=== PATIENT | female | born 1990 | race Two or more races ===

== ENCOUNTER 2019-12-13 23:06 | Emergency (ER) | payer MEDICAID ==
[~2019-12-13] VITALS: Ht 144.8 cm; Wt 49.9 kg
[2019-12-13 23:41] LABS: Basophils # (auto) 0.1 uL; Basophils % (auto) 0.7 % (0.0-2.0); Eosinophils # (auto) 0.1 uL; Eosinophils % (auto) 0.5 % (0.0-7.0); Hematocrit 37.6 % (36.0-46.0); Hemoglobin 12.9 g/dL (12.2-16.2); Lymphocytes # (auto) 2.8 uL; Mean Corpuscular Hemoglobin 32.5 pg (28.0-32.0); Mean Corpuscular Hgb Conc. 34.2 g/dL (32.0-36.0); Mean Corpuscular Volume 94.8 fL (80.0-100.0); Monocytes # (auto) 0.7 uL; Neutrophils # (auto) 7.9 uL; Neutrophils % (auto) 68.8 % (37.0-80.0); Platelet Count (auto) 293 10^3/uL (140-450); Red Blood Cells 3.97 10^6/uL (4.0-5.20); Red Cell Distribution Width 12.5 % (11.8-14.3); White Blood Cell 11.5 10^3/uL (4.4-10.8)
[2019-12-13 23:45] LABS: Urine Bacteria NONE SEEN /hpf (None Seen); Urine Blood 2+ /uL (Negative); Urine Mucus FEW (None Seen); Urine Specific Gravity 1.026 (1.001-1.035); Urine WBC 58 /hpf (0 - 5)
[2019-12-13 23:57] LABS: Albumin 3.4 g/dL (3.4-5.0); Calcium 9.3 mg/dL (8.5-10.1); Potassium 3.9 mmol/L (3.5-5.1)
[2019-12-13 23:59] LABS: Bilirubin, Total 0.3 mg/dL (0.2-1.0)
[2019-12-14 02:00] VITALS: BP 109/65
[2019-12-14] MEDS ORDERED: ACETAMINOPHEN 325 MG TAB PO ONE (04:15)
== END 2019-12-14 04:11 | disposition home or self-care (01) ==
LOC: ER 23:11
DX: O21.8 Other vomiting complicating pregnancy (principal); O47.00 False labor before 37 completed weeks of gestation, unspecified trimester; Z3A.11 11 weeks gestation of pregnancy
CPT/HCPCS: 36415; 76801; 80053; 81001; 84702; 85025